=== PATIENT | male | born 2000 | race African-American/Black ===

== ENCOUNTER 2025-01-19 16:50 | Inpatient (IN) | payer MEDICAID, OTHER ==
[~2025-01-19] VITALS: Ht 172.7 cm; Wt 69.9 kg
[~2025-01-19 16:50] MED LIST: BENZ2TAB84 PO; HALO10TA21 PO; LITH300C3 PO
[2025-01-19 16:59] VITALS: O2SAT 98
[2025-01-19 17:50] LABS: PLATELET COUNT (AUTO) 300 K/uL (150-450); RED BLOOD CELL COUNT(AUTO) 5.02 MIL/uL (4.50-5.90); RED CELL DISTRIBUTION WIDTH 14.0 % (11.5-14.5); WHITE BLOOD COUNT (AUTO) 8.3 K/uL (4.5-11.0)
[2025-01-19 17:51] LABS: CALCIUM, TOTAL 9.8 mg/dL (8.8-10.5); CREATININE 0.99 mg/dL (0.60-1.30); GLOMERULAR FILTR. RATE CALC > 60 mL/min (>60); GLUCOSE,RANDOM 101 mg/dL (70-110); SODIUM SERUM 138 mmol/L (136-145); UREA NITROGEN, BLOOD 15 mg/dL (7-18)
[2025-01-19 17:58] LABS: COVID AG,FIA SOURCE NASAL SWAB
[2025-01-19 18:15] LABS: SARS-COV2 (COVID) ANTIGEN,FIA Negative (Negative)
[2025-01-19] MEDS ORDERED: BENZ-247 PO (19:04)
[2025-01-19] MEDS ORDERED: HALO5TAB2 PO (19:04)
[2025-01-19] MEDS ORDERED: ARIP10TA38 PO (19:04)
[2025-01-19] MEDS ORDERED: PRAZ1 PO (19:04)
[2025-01-19] MEDS ORDERED: OMEG-237 PO (19:04)
[2025-01-19 21:36] LABS: APPEARANCE,URINE TURBID (CLEAR); GLUCOSE, URINE (UA) NEGATIVE (NEGATIVE); LEUKOCYTE ESTERASE ,URINE NEGATIVE (NEGATIVE); NITRATE,URINE NEGATIVE (NEGATIVE); OCCULT BLOOD,URINE NEGATIVE (NEGATIVE); PH,URINE DRUG SCREEN 8.0 (5.0-8.0); SPECIFIC GRAVITIY, URINE 1.021 (1.003-1.030)
[2025-01-19 21:43] LABS: ALCOHOL, URINE DRUG SCREEN NEGATIVE (NEGATIVE); AMPHET/METH SCREEN,URINE NEGATIVE (NEGATIVE); BARBITURATE SCREEN, URINE NEGATIVE (NEGATIVE); CANNABINOID SCREEN,URINE POSITIVE (NEGATIVE); COCAINE SCREEN,URINE NEGATIVE (NEGATIVE); METHADONE SCREEN, URINE NEGATIVE (NEGATIVE)
[2025-01-19] MEDS ORDERED: MAG HYDROX/ALUMINUM HYD/SIMETH ES 30 ML SUSPENSION UDCUP PO PRN (22:45)
[2025-01-19] MEDS ORDERED: ALBUTEROL SULFATE HFA 90 MCG/PUFF 8 GM INHALER IH PRN (22:45)
[2025-01-19] MEDS ORDERED: MAGNESIUM HYDROXIDE SUSPENSION 30 ML UDCUP PO PRN (22:45)
[2025-01-19] MEDS ORDERED: PETROLATUM,WHITE 28 GM JELLY TP PRN (22:45)
[2025-01-19] MEDS ORDERED: ACETAMINOPHEN 325 MG TABLET PO PRN (22:45)
[2025-01-19] MEDS ORDERED: LOPERAMIDE HCL 2 MG CAPSULE PO PRN (22:45)
[2025-01-19] MEDS ORDERED: IBUPROFEN 400 MG TABLET PO PRN (22:45)
[2025-01-19] MEDS ORDERED: ONDANSETRON 4 MG TABLET PO PRN (22:45)
[2025-01-19] MEDS ORDERED: GuaiFENesin/D-METHORPHAN [SUGAR-FREE] 200-20MG/10 ML SYRUP UDCUP PO PRN (22:45)
[2025-01-19] MEDS ORDERED: DOCUSATE SODIUM 100 MG CAPSULE PO PRN (22:45)
[2025-01-20 01:39] VITALS: BP 127/77; PULSE 55; RESP 18; TEMP 98.5; O2SAT 100
[2025-01-20] MEDS ORDERED: INFLUENZA VIRUS VACCINE TVS (6MO+) 2025-26/PF 45 MCG/0.5 ML SYRINGE IM. ONE (02:00)
[2025-01-20] MEDS ORDERED: GuaiFENesin/D-METHORPHAN [SUGAR-FREE] 200-20MG/10 ML SYRUP UDCUP PO PRN (06:15)
[2025-01-20] MEDS ORDERED: ALBUTEROL SULFATE HFA 90 MCG/PUFF 8 GM INHALER IH PRN (06:15)
[2025-01-20] MEDS ORDERED: PETROLATUM,WHITE 28 GM JELLY TP PRN (06:15)
[2025-01-20] MEDS ORDERED: ACETAMINOPHEN 325 MG TABLET PO PRN (06:15)
[2025-01-20] MEDS ORDERED: IBUPROFEN 400 MG TABLET PO PRN (06:15)
[2025-01-20] MEDS ORDERED: MAG HYDROX/ALUMINUM HYD/SIMETH ES 30 ML SUSPENSION UDCUP PO PRN (06:15)
[2025-01-20] MEDS ORDERED: DOCUSATE SODIUM 100 MG CAPSULE PO PRN (06:15)
[2025-01-20] MEDS ORDERED: ONDANSETRON 4 MG TABLET PO PRN (06:15)
[2025-01-20] MEDS ORDERED: NICOTINE 14 MG/24 HOUR PATCH TD PRN (06:15)
[2025-01-20 08:28] VITALS: BP 141/81; PULSE 60; RESP 17; TEMP 98.1; O2SAT 100
[2025-01-20 09:22] LABS: CHOL/HDL RATIO 1.9 (4.2-7.3); LDL CHOL (CALC.) 69.0 mg/dL (0-130)
[2025-01-20] MEDS: LITHIUM CARBONATE 300 MG CAPSULE PO SCH (16:39)
[2025-01-20 20:12] VITALS: BP 143/89; PULSE 57; RESP 19; TEMP 98.1; O2SAT 100
[2025-01-21] MEDS: ZOLPIDEM TARTRATE 10 MG TABLET PO PRN (01:05)
[2025-01-21 08:07] VITALS: BP 137/87; PULSE 62; RESP 16; TEMP 97.7; O2SAT 98
[2025-01-21 09:58] LABS: CHOL/HDL RATIO 2.0 (4.2-7.3); LDL CHOL (CALC.) 68.0 mg/dL (0-130)
[2025-01-21 20:07] VITALS: RESP 18
[2025-01-22 08:12] VITALS: BP 138/69; PULSE 88; RESP 16; TEMP 97.6; O2SAT 100
[2025-01-22] MEDS: ARIPiprazole LAUROXIL,SUBMICR. ER SUSPENSION 675 MG/2.4 ML SYRINGE IM ONE (16:06)
[2025-01-22] MEDS: ARIPiprazole LAUROXIL ER SUSPENSION 1064 MG/3.9 ML SYRINGE IM ONE (16:06)
[2025-01-22 20:11] VITALS: BP 129/81; PULSE 68; RESP 18; TEMP 98.1; O2SAT 99
[2025-01-22] MEDS: LOPERAMIDE HCL 2 MG CAPSULE PO PRN (20:15)
[2025-01-23 08:04] VITALS: BP 141/89; PULSE 99; RESP 17; TEMP 98; O2SAT 100
[2025-01-23 20:23] VITALS: BP 139/77; PULSE 80; RESP 16; TEMP 99; O2SAT 99
[2025-01-24 10:04] VITALS: BP 151/77; PULSE 87; RESP 16; TEMP 99; O2SAT 99
[2025-01-24] MEDS: MAGNESIUM HYDROXIDE SUSPENSION 30 ML UDCUP PO PRN (11:55)
[2025-01-24 21:46] VITALS: RESP 17
[2025-01-25 13:50] VITALS: BP 135/59; PULSE 70; RESP 18; TEMP 98.4
[2025-01-25 20:28] VITALS: BP 130/86; PULSE 86; RESP 15; TEMP 97.4; O2SAT 99
[2025-01-26 08:46] VITALS: BP 133/74; PULSE 60; RESP 15; TEMP 98.4; O2SAT 100
[2025-03-23] MEDS ORDERED: ARIPiprazole LAUROXIL ER SUSPENSION 1064 MG/3.9 ML SYRINGE IM SCH (09:00)
== END 2025-01-26 13:10 | disposition left against medical advice (07) | DRG 761 ==
LOC: EMS 16:50 → B3A 19:05 → EDH 19:17 → UNDOADMIN 19:17 → B3A 01-21 00:44
PROVIDERS: ADMIT Psychiatry & Neurology Child & Adolescent Psychiatry; ATTEND Psychiatry & Neurology Child & Adolescent Psychiatry
PROC: GZHZZZZ Group Psychotherapy (ICD-10-PCS; principal; 2025-01-19)
PROC: GZ51ZZZ Individual Psychotherapy, Behavioral (ICD-10-PCS; 2025-01-19)
DX: F25.0 Schizoaffective disorder, bipolar type (principal); F12.10 Cannabis abuse, uncomplicated; G47.00 Insomnia, unspecified; F41.9 Anxiety disorder, unspecified; R03.0 Elevated blood-pressure reading, without diagnosis of hypertension; Z20.822 Contact with and (suspected) exposure to COVID-19; Z79.899 Other long term (current) drug therapy
CPT/HCPCS: 80048; 80061; 80178; 80307; 81003; 83036; 84439; 84443; 85025; 90686; 99285; G0480